=== PATIENT | male | born 1985 | race Caucasian/White ===

== ENCOUNTER 2016-07-17 14:05 | Emergency (ER) | payer BC | END 2016-07-17 17:57 | disposition home or self-care (01) | LOC: ER 14:22 | DX: R04.0 Epistaxis (principal); Z76.0 Encounter for issue of repeat prescription; I10 Essential (primary) hypertension; F17.210 Nicotine dependence, cigarettes, uncomplicated; Z91.040 Latex allergy status | CPT/HCPCS: 36415; 80053; 81003; 83690; 85025 ==